=== PATIENT | female | born 1955 | race Caucasian/White ===

== ENCOUNTER → 2022-01-10 | Outpatient (CLI) | payer MEDICARE ==
[~2022-01-10] MED LIST: NORCO 5-325 TA1 EACH PO; SIMVASTATIN10 MG PO; VALIUM2 MG PO; VITAMIN B1250 MCG PO
== END | disposition home or self-care (01) ==
LOC: RAD 16:24
PROVIDERS: ATTEND Physician Assistant
DX: M25.532 Pain in left wrist (principal)

== ENCOUNTER → 2025-03-27 | Outpatient (CLI) | payer MEDICARE | END | disposition home or self-care (01) | LOC: RAD 07:44 | PROVIDERS: ATTEND Chiropractor | DX: M48.02 Spinal stenosis, cervical region (principal); M43.12 Spondylolisthesis, cervical region; M40.40 Postural lordosis, site unspecified; M54.2 Cervicalgia ==